=== PATIENT | female | born 1950 | race Caucasian/White ===

== ENCOUNTER → 2018-12-31 15:57 | Outpatient (CLI) | payer OTHER, MEDICARE, SELFPAY ==
--- NOTE | 2018-12-31 16:01 | DI.ECHO.S_ITS ---
[facility] +---------+ : : [address] : [address] : : : : [id number] : : : : Phone: [phone]---------+ Echocardiogram Report + + :Name: MEENA CRESPO Study Date: 12/31/2018 Height: 68 in : :[facility] Weight: 139 lb: : Gender: Female BSA: 1.8 m2 : :: 1950 Age: 68 yrs BP: 96/60 mmHg: :Reason For Study: Palpitations : : Performed By: Sherine Howell : :Referring: JUAN FRYE : + + Interpretation Summary Normal sinus rhythm. Normal LV size and wall thickness. Low normal EF estimated at 50-55%. Normal chamber sizes. No significant valvular abnormalities. Compared to prior study 06/19/2017 occasional PVC's during echo are no longer seen. Otherwise no changes have occurred. Procedure: A two-dimensional transthoracic echocardiogram with color flow and Doppler was performed. The study quality was technically good. Comparison is made with the echocardiogram of 06-19-17. The patient was in normal sinus rhythm during the exam. Left Ventricle: The left ventricle is normal in size. There is normal left ventricular wall thickness. The ejection fraction is estimated to be 50-55%. Diastolic parameters suggest probable normal left ventricular diastolic function and normal filling pressures. Right Ventricle: The right ventricle grossly appears normal in size with probable normal systolic function. Atria: The left atrial size is normal. Right atrial size is normal. The interatrial septum is intact with no evidence for an atrial septal defect. Mitral Valve: The mitral valve is normal in structure and function. There is no mitral regurgitation noted. Aortic Valve: The aortic valve is trileaflet. The aortic valve opens well. No aortic regurgitation is present. Tricuspid Valve: The tricuspid valve is normal in structure and function. There is a trace or physiologic amount of tricuspid regurgitation. The right ventricular systolic pressure is estimated to be at least 17 mmHg based on an estimated right atrial pressure of 3 mm Hg. Pulmonic Valve: The pulmonic valve is normal in structure and function. There is a trace or physiologic amount of pulmonic regurgitation. Great Vessels: The aortic root is normal size. The dimensions of the ascending aorta are normal. The aortic arch is normal in size. The IVC is of normal diameter and collapses greater than 50% with a sniff. This suggests a low right atrial pressure of 3 mm Hg. Pericardium/ Pleura There is no pericardial effusion. There is no pleural effusion. MMode/2D Measurements & Calculations LVIDd: 4.7 cm Ao root diam: 3.7 cm LVIDs: 3.5 cm Aortic Jxn: 2.8 cm FS: 25.2 % asc Aorta Diam: 3.4 cm EPSS: 1.1 cm Ao Arch Diam (Prox Trans): 2.8 cm IVSd: 1.0 cm LVPWd: 0.69 cm LV morrison. diameter/BSA (cm/m^2): 2.7 LV sys. diameter/BSA (cm/m^2): 2.0 LA dimension: 3.3 cm RA long axis: 5.0 cm LA A2 area: 19.2 cm2 RA area: 16.1 cm2 LA A4 area: 15.6 cm2 RA vol: 43.6 ml LA length (vol): 5.0 cm RA : 24.9 ml/m2 LA vol: 51.3 ml IVC diam: 1.9 cm LA vol index: 29.3 ml/m2 RVDd major: 6.0 cm RVD1 (basal): 3.3 cm RVD2 (mid): 2.5 cm Doppler Measurements & Calculations Ao V2 max: 122.4 cm/sec MV E max seth: 57.3 cm/sec Ao V2 mean: 81.0 cm/sec MV A max seth: 80.2 cm/sec Ao max P.0 mmHg MV E/A: 0.71 Ao mean P.0 mmHg Med Peak E' Seth: 6.1 cm/sec Ao V2 VTI: 24.7 cm E/E' med: 9.4 Lat Peak E' Seth: 6.9 cm/sec E/E' lat: 8.2 E/e' average: 8.8 MV dec time: 0.20 sec MV P1/2t: 59.2 msec TR max seth: 186.2 cm/sec MV P1/2t max seth: 57.9 cm/sec TR max P.9 mmHg MVA(P1/2t): 3.7 cm2 PA V2 max: 63.2 cm/sec PA V2 mean: 41.8 cm/sec PA mean P.82 mmHg PA Accel Time: 0.18 sec Electronically signed by: Danielle Eldridge M.D. on Reading Physician:01/01/2019 04:00 AM
--- NOTE | 2018-12-31 16:02 | DI.MG.S_ITS ---
BILATERAL DIGITAL SCREENING MAMMOGRAM 3D/2D WITH CAD: 12/31/2018 CLINICAL: Routine screening. Personal history of right breast cancer. Comparison is made to exams dated: 09/08/2014 mammogram and 07/28/2013 mammogram - [facility]. There are scattered fibroglandular elements in both breasts. Current study was also evaluated with a Computer Aided Detection (CAD) system. No significant masses, calcifications, or other findings are seen in either breast. There has been no significant interval change. IMPRESSION: NEGATIVE There is no mammographic evidence of malignancy. A 1 year screening mammogram is recommended. This exam was interpreted at Station ID: [id number]. NOTE: For mammograms, a report in lay terms will be sent to the patient. Approximately 15% of breast malignancies will not be visualized mammographically. In the management of a palpable breast mass, a negative mammogram must not discourage biopsy of a clinically suspicious lesion. Electronically Signed By: Hope garcia/calli:01/01/2019 07:35:25 letter sent: Normal Exam ACR BI-RADS Category 1: Negative 3341F
== END ==
PROVIDERS: PCP Family Medicine; Visit Provider Family Medicine
DX: Z12.31 Encounter for screening mammogram for malignant neoplasm of breast (principal); R00.2 Palpitations; Z85.3 Personal history of malignant neoplasm of breast
CPT/HCPCS: 77063; 77067; 93306

== ENCOUNTER → 2019-02-07 15:01 | Outpatient (CLI) | payer OTHER, MEDICARE, SELFPAY ==
--- NOTE | 2019-02-07 | DI.RAD.S_ITS ---
PROCEDURE: XR FOOT LT MIN 3V INDICATIONS: LEFT 4TH TOE PAIN TECHNIQUE: 3 views of the foot were acquired. COMPARISON: None. FINDINGS: Bones: Minimally displaced fracture involving the fourth toe proximal phalanx. No definite extension to an articular surface. Soft tissues: Multiple sub-5 mm foreign bodies projecting in the plantar soft tissues of the hindfoot IMPRESSION: Minimally displaced fracture of the fourth toe proximal phalanx. Foreign body projecting in the plantar soft tissues of the heel, age-indeterminate. Dictated by: Jefe Lawrence M.D. on 02/07/2019 at 16:04 Approved by: Jefe Lawrence M.D. on 02/07/2019 at 16:07
== END ==
PROVIDERS: PCP Family Medicine; Visit Provider Family Medicine
DX: M79.675 Pain in left toe(s) (principal); S92.512A Displaced fracture of proximal phalanx of left lesser toe(s), initial encounter for closed fracture
CPT/HCPCS: 73630

== ENCOUNTER 2019-05-06 10:21 | Day surgery (SDC) | payer MEDICARE, SELFPAY ==
[2019-05-06] MEDS: PROPARACAINE 0.5% OPHTH SOL 2 DROPS EYE-OP (10:58)
[2019-05-06] MEDS: CATARACT EYE COMPOUND (10 DROPS/SYRINGE) 3 DROPS EYE-OP (10:59)
[2019-05-06 11:06] VITALS: BMI 22.8
[2019-05-06 11:11] VITALS: BP 114/77; PULSE 64; RESP 16; TEMP 36; O2SAT 98
--- NOTE | 2019-05-06 11:46 | PM.PREOP ---
Pre-operative Note Interval Note History & Physical reviewed/Exam performed by Physician: No Changes to H&P: No
--- NOTE | 2019-05-06 11:47 | PM.OP.1 ---
Operative Date/Time/Diagnoses Pre-op diagnosis: Nuclear Cataract Left eye Post-op diagnosis: same Procedure & Clinicians Surgeon: Reilly Oliva Anesthesia Type: MAC +/- and Sedation Operative Notes Procedure in detail: Patient brought to the operating suite. Tetracaine drops placed in the left eye. Patient was prepped and draped in sterile manner. Wire lid speculum was placed in the eye. Betadine drops were placed on the eye. This was irrigated. Lidocaine jelly was placed on the eye. A paracentesis port was created with a side-port blade. 0.1 mL 1% preservative free lidocaine was injected into the anterior chamber. The anterior chamber was deepened with viscoelastic. 2.6 mm keratome was used to create a temporal clear corneal incision. Cystotome and Utrata forceps were used to create continuous tear capsulorrhexis. Balanced salt solution was used to hydro dissect the nucleus. The phacoemulsification handpiece was inserted and the nucleus was removed using the stop and chop technique. The irrigation aspiration handpiece was inserted and the remaining cortex was removed. Anterior chamber was deepened with viscoelastic. An Barraza ZCB00 intraocular lens with a power of 21.0 was injected into the capsular bag. Irrigation aspiration handpiece was inserted and the remaining viscoelastic was removed. Incision was hydrated with balanced salt solution and found to be leak free with pressure with Weck-Evelyn sponges. 0.1 mL Vigamox injected anterior chamber. 0.3 mL Kenalog 10 mg was injected subconjunctivally. Lid speculum was removed. The patient left the operating room in excellent condition. Complications: none Post-operative Condition: stable Disposition: same day surgery
[2019-05-06] MEDS: MOXIFLOXACIN INJ 5 MG/ML VIAL EYE-OP (12:03)
[2019-05-06] MEDS: TRIAMCINOLONE 50 MG/5 ML VIAL INJ (12:03)
[2019-05-06] MEDS: PHENYLEPHRINE/LIDOCAINE VIAL (OR) 0.2 ML EYE-OP (12:03)
[2019-05-06] MEDS: TETRACAINE 0.5% OPHTH DROPS 4 ML 2 DROPS EYE-OP (12:04)
[2019-05-06] MEDS: BALANCED SALT IRRIG SOLN NO.2 500 ML, EPINEPHrine 1 MG IRR (12:04)
[2019-05-06] MEDS: LIDOCAINE JELLY 2% 5 ML 1 APPLIC TOP (12:04)
[2019-05-06] MEDS: CHONDROIDTIN/SOD HYALURONATE 1.05 ML SYRINGE INTRAOCULA (12:04)
[2019-05-06 12:17] VITALS: BP 104/77; PULSE 73; RESP 15; TEMP 36.3; O2SAT 99
[2019-05-06 12:41] VITALS: BP 114/70; PULSE 67; RESP 16; TEMP 36.1; O2SAT 100
== END 2019-05-06 12:44 | disposition home or self-care (01) ==
PROVIDERS: Family Provider Family Medicine; PCP Family Medicine; Visit Provider Ophthalmology
PROC: (CPT 66984; principal; 2019-05-06 12:15)
DX: H25.12 Age-related nuclear cataract, left eye (principal)
CPT/HCPCS: 66984; J0171; J2250; J3301

== ENCOUNTER 2019-05-20 08:33 | Day surgery (SDC) | payer MEDICARE, SELFPAY ==
[2019-05-20 09:20] VITALS: BP 111/71; PULSE 53; RESP 16; TEMP 36.3; O2SAT 100; BMI 21.1
[2019-05-20] MEDS: PROPARACAINE 0.5% OPHTH SOL 2 DROPS EYE-OP (09:37)
[2019-05-20] MEDS: CATARACT EYE COMPOUND (10 DROPS/SYRINGE) 3 DROPS EYE-OP (09:37)
--- NOTE | 2019-05-20 10:13 | PM.PREOP ---
Pre-operative Note Interval Note History & Physical reviewed/Exam performed by Physician: No Changes to H&P: No
--- NOTE | 2019-05-20 10:13 | PM.OP.1 ---
Operative Date/Time/Diagnoses Pre-op diagnosis: Nuclear cataract right eye Procedure & Clinicians Procedure: Cataract Surgery Same procedure as scheduled: Yes Surgeon: Reilly Oliva Anesthesia Type: MAC +/- and Sedation Operative Notes Procedure in detail: Patient brought to the operating suite. Tetracaine drops placed in the right eye. Patient was prepped and draped in sterile manner. Wire lid speculum was placed in the eye. Betadine drops were placed on the eye. This was irrigated. Lidocaine jelly was placed on the eye. A paracentesis port was created with a side-port blade. 0.1 mL 1% preservative free lidocaine was injected into the anterior chamber. The anterior chamber was deepened with viscoelastic. 2.6 mm keratome was used to create a temporal clear corneal incision. Cystotome and Utrata forceps were used to create continuous tear capsulorrhexis. Balanced salt solution was used to hydro dissect the nucleus. The phacoemulsification handpiece was inserted and the nucleus was removed using the stop and chop technique. The irrigation aspiration handpiece was inserted and the remaining cortex was removed. Anterior chamber was deepened with viscoelastic. An Barraza ZCB00 intraocular lens with a power of 21.5 was injected into the capsular bag. Irrigation aspiration handpiece was inserted and the remaining viscoelastic was removed. Incision was hydrated with balanced salt solution and found to be leak free with pressure with Weck-Evelyn sponges. 0.1 mL Vigamox injected anterior chamber. 0.3 mL Kenalog 10 mg was injected subconjunctivally. Lid speculum was removed. The patient left the operating room in excellent condition. Complications: none Post-operative Condition: stable Disposition: same day surgery
[2019-05-20] MEDS: PHENYLEPHRINE/LIDOCAINE VIAL (OR) 0.2 ML EYE-OP (10:38)
[2019-05-20] MEDS: LIDOCAINE JELLY 2% 5 ML 1 APPLIC TOP (10:38)
[2019-05-20] MEDS: TRIAMCINOLONE 50 MG/5 ML VIAL INJ (10:38)
[2019-05-20] MEDS: MOXIFLOXACIN INJ 5 MG/ML VIAL EYE-OP (10:38)
[2019-05-20] MEDS: BALANCED SALT IRRIG SOLN NO.2 500 ML, EPINEPHrine 1 MG IRR (10:39)
[2019-05-20] MEDS: TETRACAINE 0.5% OPHTH DROPS 4 ML 2 DROPS EYE-OP (10:39)
[2019-05-20] MEDS: CHONDROIDTIN/SOD HYALURONATE 1.05 ML SYRINGE INTRAOCULA (10:39)
[2019-05-20 10:50] VITALS: BP 116/74; PULSE 55; RESP 15; TEMP 36.3; O2SAT 100
== END 2019-05-20 11:05 | disposition home or self-care (01) ==
PROVIDERS: PCP Family Medicine; Visit Provider Ophthalmology
PROC: (CPT 66984; principal; 2019-05-20 10:45)
DX: H25.11 Age-related nuclear cataract, right eye (principal)
CPT/HCPCS: 66984; J0171; J2250; J3301

== ENCOUNTER → 2020-03-03 11:36 | Outpatient (CLI) | payer OTHER, SELFPAY ==
--- NOTE | 2020-03-03 11:47 | DI.RAD.S_ITS ---
PROCEDURE: XR FINGER RT MIN 2V INDICATIONS: RT FINGER INJURY TECHNIQUE: AP hand, 2 views of the right finger(s) acquired. COMPARISON: None. FINDINGS: Bones: No fracture. Diffuse interphalangeal osteoarthritic changes. Distal radioulnar joint degeneration. Scattered degenerative subchondral sclerosis and spurring. Soft tissues: No suspicious soft tissue calcifications. IMPRESSION: No fracture. If the patient's symptoms do not improve recommend followup radiographs in 10 days to assess for healing sclerosis/occult injury. Dictated by: Jefe Lawrence M.D. on 03/03/2020 at 14:02 Approved by: Jefe Lawrence M.D. on 03/03/2020 at 14:13
== END ==
PROVIDERS: PCP Family Medicine; Referring Provider Family Medicine; Visit Provider Family Medicine
DX: M20.011 Mallet finger of right finger(s) (principal)
CPT/HCPCS: 73140

== ENCOUNTER → 2020-04-17 15:16 | Outpatient (CLI) | payer OTHER, SELFPAY ==
--- NOTE | 2020-04-17 | DI.RAD.S_ITS ---
PROCEDURE: XR KNEE LT 1TO2V INDICATIONS: Bilateral Knee Pain TECHNIQUE: 2 views of the knee were acquired. COMPARISON: None. FINDINGS: Bones: No fractures or dislocations. No suspicious bony lesions. Mild tricompartmental periarticular osteophyte formation. Soft tissues: No joint effusion. No suspicious soft tissue calcifications. IMPRESSION: Osteoarthritis. No acute fracture. No osseous lesion. If symptoms and/or clinical suspicion for pathology persist, further assessment with repeat, or advanced imaging (e.g., CT, MRI, or bone scan) may be helpful for further assessment. Dictated by: Yanci Lopez M.D. on 04/17/2020 at 15:47 Approved by: Yanci Lopez M.D. on 04/17/2020 at 15:47
--- NOTE | 2020-04-17 | DI.RAD.S_ITS ---
PROCEDURE: XR KNEE RT 1TO2V INDICATIONS: Bilateral Knee Pain TECHNIQUE: 2 views of the knee were acquired. COMPARISON: None. FINDINGS: Bones: No fractures or dislocations. No suspicious bony lesions. Mild tricompartmental periarticular osteophyte formation. Soft tissues: No joint effusion. No suspicious soft tissue calcifications. IMPRESSION: Osteoarthritis. No acute fracture. No osseous lesion. If symptoms and/or clinical suspicion for pathology persist, further assessment with repeat, or advanced imaging (e.g., CT, MRI, or bone scan) may be helpful for further assessment. Dictated by: Yanci Lopez M.D. on 04/17/2020 at 15:48 Approved by: Yanci Lopez M.D. on 04/17/2020 at 15:48
== END ==
PROVIDERS: PCP Family Medicine; Referring Provider Family Medicine; Visit Provider Family Medicine
DX: M17.0 Bilateral primary osteoarthritis of knee (principal); M25.562 Pain in left knee; M25.561 Pain in right knee
CPT/HCPCS: 73560

== ENCOUNTER → 2020-05-12 15:10 | Outpatient (CLI) | payer OTHER, SELFPAY ==
--- NOTE | 2020-05-12 15:12 | DI.MG.S_ITS ---
BILATERAL DIGITAL SCREENING MAMMOGRAM 3D/2D WITH CAD: 05/12/2020 CLINICAL: Routine screening. Breast cancer. Comparison is made to exams dated: 12/31/2018 mammogram, 07/13/2017 mammogram, and 09/08/2014 mammogram - [facility]. There are scattered fibroglandular elements in both breasts. Current study was also evaluated with a Computer Aided Detection (CAD) system. No significant masses, calcifications, or other findings are seen in either breast. There has been no significant interval change. IMPRESSION: NEGATIVE There is no mammographic evidence of malignancy. A 1 year screening mammogram is recommended. This exam was interpreted at Station ID: [id number]. NOTE: For mammograms, a report in lay terms will be sent to the patient. Approximately 15% of breast malignancies will not be visualized mammographically. In the management of a palpable breast mass, a negative mammogram must not discourage biopsy of a clinically suspicious lesion. Electronically Signed By: Sudarshan johnston/calli:05/12/2020 16:43:21 letter sent: Normal Exam ACR BI-RADS Category 1: Negative 3341F
== END ==
PROVIDERS: PCP Family Medicine; Referring Provider Family Medicine; Visit Provider Family Medicine
DX: Z12.31 Encounter for screening mammogram for malignant neoplasm of breast (principal); Z85.3 Personal history of malignant neoplasm of breast
CPT/HCPCS: 77063; 77067

== ENCOUNTER → 2020-09-11 13:28 | Outpatient (CLI) | payer OTHER, SELFPAY ==
--- NOTE | 2020-09-11 | DI.RAD.S_ITS ---
PROCEDURE: XR FINGER LT MIN 2V INDICATIONS: LEFT THUMB PAIN TECHNIQUE: AP hand, 2 views of the 1st finger(s) acquired. COMPARISON: None. FINDINGS: No acute fracture or dislocation. Moderate osteoarthritic change at the 1st CMC with lateral subluxation of the 1st metacarpal. An adjacent erosion may represent subchondral cyst although an inflammatory erosion could appear similar. Joint spaces are otherwise maintained with no significant additional degenerative changes identified. IMPRESSION: Moderate presumably osteoarthritic changes at the 1st CMC. Periarticular lucency within the 1st metacarpal may represent a subchondral cyst related to osteoarthritic change although lucency related to inflammatory polyarthropathy could appear similar. Dictated by: Hakan Unger M.D. on 09/11/2020 at 14:10 Approved by: Hakan Unger M.D. on 09/11/2020 at 14:11
== END ==
PROVIDERS: PCP Family Medicine; Referring Provider Family Medicine; Visit Provider Family Medicine
DX: M19.042 Primary osteoarthritis, left hand (principal)
CPT/HCPCS: 73140

== ENCOUNTER → 2021-07-06 09:46 | Outpatient (CLI) | payer OTHER, SELFPAY | PROVIDERS: PCP Family Medicine; Referring Provider Family Medicine; Visit Provider Family Medicine | DX: M81.0 Age-related osteoporosis without current pathological fracture (principal); E07.9 Disorder of thyroid, unspecified; Z78.0 Asymptomatic menopausal state; Z82.62 Family history of osteoporosis | CPT/HCPCS: 77080 ==

== ENCOUNTER → 2022-07-31 14:22 | Outpatient (CLI) | payer OTHER, SELFPAY ==
--- NOTE | 2022-07-31 | DI.RAD.S_ITS ---
PROCEDURE: XR LUMBAR SPINE 2-3V INDICATIONS: Radiculopathy, lumbar region TECHNIQUE: 3 views of the lumbar spine were acquired. COMPARISON: None. FINDINGS: Bones: 5 [id number] vertebrae are present. There is normal bony alignment. No vertebral body compression fractures. No suspicious bony lesions. Disc spaces are relatively preserved. Hypertrophic facet joints noted the lower lumbar spine. No intrinsic osseous lesion. Soft tissues: Overlying bowel gas pattern is normal. No suspicious soft tissue calcifications. IMPRESSION: Lower lumbar spine degenerative facet arthropathy Approved by: Shan Claros M.D. on 07/31/2022 at 18:01
--- NOTE | 2022-07-31 | DI.RAD.S_ITS ---
PROCEDURE: XR HIP W PEL IF DONE RT 2V INDICATIONS: Radiculopathy, lumbar region TECHNIQUE: 2 views of the right hip were acquired. COMPARISON: None. FINDINGS: Bones: No fractures or dislocations. No suspicious bony lesions. The visualized pelvic ring appears intact. Soft tissues: No suspicious soft tissue calcifications or masses. IMPRESSION: Normal right hip radiographs Approved by: Shan Claros M.D. on 07/31/2022 at 18:02
== END ==
PROVIDERS: PCP Family Medicine; Referring Provider Family Medicine; Visit Provider Family Medicine
DX: M81.0 Age-related osteoporosis without current pathological fracture (principal); M47.26 Other spondylosis with radiculopathy, lumbar region; Z13.820 Encounter for screening for osteoporosis; M06.9 Rheumatoid arthritis, unspecified; Z79.83 Long term (current) use of bisphosphonates
CPT/HCPCS: 72100; 73502; 77080

== ENCOUNTER → 2022-08-31 12:54 | Outpatient (CLI) | payer OTHER, SELFPAY ==
--- NOTE | 2022-08-31 12:55 | DI.MG.S_ITS ---
BILATERAL DIGITAL SCREENING MAMMOGRAM 3D/2D WITH CAD: 08/31/2022 CLINICAL: Routine screening. Comparison is made to exams dated: 05/12/2020 mammogram, 12/31/2018 mammogram, and 07/13/2017 mammogram - [facility]. There are scattered areas of fibroglandular density in both breasts (category b / 25%-50% glandular tissue). Current study was also evaluated with a Computer Aided Detection (CAD) system. There are benign calcifications in the right breast. No significant masses, calcifications, or other findings are seen in either breast. There has been no significant interval change. IMPRESSION: BENIGN There is no mammographic evidence of malignancy. A 1 year screening mammogram is recommended. Based on the Tyrer Cuzick model (a risk assessment model) the patient's lifetime risk is 6.3% and her 10 year risk is 5.6%. According to the ACR, ACS, and NCCN guidelines, an annual breast MRI exam along with mammogram is recommended if the patient's lifetime risk is 20% or greater. This exam was interpreted at Station ID: [id number]. NOTE: For mammograms, a report in lay terms will be sent to the patient. Approximately 15% of breast malignancies will not be visualized mammographically. In the management of a palpable breast mass, a negative mammogram must not discourage biopsy of a clinically suspicious lesion. Electronically Signed By: Hope garcia/calli:08/31/2022 13:30:29 letter sent: Normal Exam ACR BI-RADS Category 2: Benign Finding(s) 3342F
== END ==
PROVIDERS: PCP Family Medicine; Referring Provider Family Medicine; Visit Provider Family Medicine
DX: Z12.31 Encounter for screening mammogram for malignant neoplasm of breast (principal)
CPT/HCPCS: 77063; 77067

== ENCOUNTER → 2023-12-25 10:41 | Outpatient (CLI) | payer OTHER, SELFPAY ==
--- NOTE | 2023-12-25 | DI.RAD.S_ITS ---
PROCEDURE: XR DEXA AXIAL SKELETON INDICATIONS: Age-related osteoporosis COMPARISON: [facility], CR, XR DEXA AXIAL SKELETON, 07/31/2022, 15:12. FINDINGS: Lumbar Spine: Bone mineral density 0.794 g/cm2, T score -2.3, prior T-score,-2.1.. Left Hip: Bone mineral density is 0.744 g/cm2, T score -1.6, prior T-score,. Left Femoral Neck: Bone mineral density is 0.56 g/cm2, T score -2.5, prior T-score,-2.5.. Right Hip: Bone mineral density is 0.681 g/cm2, T score -2.1, prior T-score, -2.1. Right Femoral Neck: Bone mineral density is 0.567 g/cm2, T score -2.5, prior T-score, -2.4 . Fracture Risk Calculation (when applicable): 10-year fracture risk of a major osteoporotic fracture 19% and of a hip fracture 6.9%. (T score greater or equal to -1.0 to: NORMAL) (T score from -1.1 to -2.4: OSTEOPENIA) (T score less than or equal to -2.5: OSTEOPOROSIS) IMPRESSION: Osteopenia. Follow-up guidelines as follows: Osteoporosis: Consider a repeat DEXA and Vertebral Fracture Assessment (VFA) exam in 2 years or sooner if medically necessary, to reassess this patient's status. Osteopenia: Consider a repeat DEXA in 2-3 years to reassess this patient's status, or if there is a new clinical indication. Normal: Consider a repeat DEXA in 5 years or sooner, or if there is a new clinical indication. All treatment decisions require clinical judgment and consideration of individual patient factors, including patient preferences, comorbidities, previous drug use, risk factors not captured in the FRAX model (e.g., frailty, falls, vitamin D deficiency, increased bone turnover, interval significant decline in bone density ) and possible under- or over-estimation of fracture risk by FRAX. In addition, the NOF Guide recommends that FDA-approved medical therapies be considered in postmenopausal women and men age >= 50 years with a: * Hip or vertebral (clinical or morphometric) fracture * T-score of <=-2.5 at the spine or hip * Ten-year fracture probability by FRAX of >= 3% for hip fracture or >=20% for major osteoporotic fracture. People with diagnosed cases of osteoporosis or at high risk for fracture should have regular bone mineral density tests. For patients eligible for Medicare, routine testing is allowed once every 2 years. The testing frequency can be increased to one year for patients who have rapidly progressing disease, those who are receiving or discontinuing medical therapy to restore bone mass, or have additional risk factors. Dictated by: Rob Lovell M.D. on 12/26/2023 at 10:39 Approved by: Rob Lvoell M.D. on 12/26/2023 at 10:47
== END ==
PROVIDERS: PCP Family Medicine; Referring Provider Family Medicine; Visit Provider Family Medicine
DX: M81.0 Age-related osteoporosis without current pathological fracture (principal)
CPT/HCPCS: 77080